=== PATIENT | male | born 1950 ===

== ENCOUNTER → 2018-01-18 | Day surgery (SDC) | payer OTHER | END | disposition home or self-care (01) | LOC: ADM 01-14 13:45 → CIR.AMB 10:49 | DX: D12.2 Benign neoplasm of ascending colon (principal); D12.4 Benign neoplasm of descending colon; D12.3 Benign neoplasm of transverse colon; D12.5 Benign neoplasm of sigmoid colon; K64.8 Other hemorrhoids ==